=== PATIENT | female | born 1965 | race Caucasian/White ===

== ENCOUNTER 2021-05-06 10:45 | Outpatient (CLI) | payer OTHER, SELFPAY ==
--- NOTE | ~2021-05-06 | US_ITS ---
EXAMINATION: US pelvic complete w TV DATE: 05/06/2021 11:10 INDICATION: Abnormal uterine bleeding. Possible menopause. Comparison:No prior studies for comparison. TECHNIQUE: Multiple transabdominal and endovaginal sonographic images of the pelvis performed. FINDINGS: The uterus measures 10.1 x 4.9 x 6.3 cm. The endometrial complex measures 1.7 cm. Endometri um is heterogeneous. The ovaries are not visualized, possibly atrophic. There is no free fluid in the pelvis. There are no abnormal masses seen on either side. IMPRESSION: 1. Thickened endomtrial complex. The differential diagnosis includes endometrial hyperplasia, polyp a nd carcinoma. Biopsy is recommended. Reviewed, dictated and finalized at location A. IMPRESSION: 1. Thickened endomtrial complex. The differential diagnosis includes endometria l hyperplasia, polyp and carcinoma. Biopsy is recommended.
== END 2021-05-06 10:46 ==
PROVIDERS: PCP Physician Assistant; Visit Provider Obstetrics & Gynecology
DX: N93.9 Abnormal uterine and vaginal bleeding, unspecified (principal)
CPT/HCPCS: 76830; 76856

== ENCOUNTER → 2021-11-11 16:43 | Outpatient (CLI) | payer OTHER, SELFPAY ==
--- NOTE | ~2021-11-11 | XR_ITS ---
EXAMINATION: XR skull min 4V DATE: 11/11/2021 17:31 INDICATION: Asymmetrical skull. Right frontal lump. TECHNIQUE: 4 views of the skull were obtained. COMPARISON: None. FINDINGS: Bone alignment is normal. No abnormal mass. No fracture. IMPRESSION: 1. Normal skull. Reviewed, dictated and finalized at location B. IMPRESSION: 1. Normal skull.
== END ==
PROVIDERS: PCP Physician Assistant; Visit Provider Physician Assistant
DX: Q75.9 Congenital malformation of skull and face bones, unspecified (principal)
CPT/HCPCS: 70260

== ENCOUNTER 2022-03-31 14:16 | Outpatient (CLI) | payer OTHER, SELFPAY ==
--- NOTE | ~2022-03-31 | CT_ITS ---
EXAMINATION: CT abdomen pelvis wo/w con DATE: 03/31/2022 15:11 INDICATION: Microscopic hematuria. Right flank pain. TECHNIQUE: Computed tomography (CT) of the abdomen and pelvis was performed without and with intraven ous contrast using a total of 130 mL Omnipaque-350 intravenous contrast with a double-bolus technique for simultaneous opacification of the renal parenchyma and renal collecting system. Automated exposu re control and iterative reconstruction technique were employed. The dose-length product was 2218.26 mGy-cm. COMPARISON: CT abdomen and pelvis 04/24/2019 FINDINGS: The visualized portions of the lung bases are clear without pneumonia or pleural effusion. The heart size is normal. No pericardial effusion. The liver and spleen are normal. There are changes of cholec ystectomy. The pancreas and adrenal glands are normal. There is cortical thinning of right kidney. Th ere are cysts in left kidney measuring up to 7 mm. There are phleboliths in right ovarian vein. There is no urolithiasis. The bladder is not well distended. There are no dilated loops of bowel. The appe ndix is normal. There is an umbilical hernia containing fat. There are no pathologically enlarged lym ph nodes. There is no free intraperitoneal fluid. There is moderate lumbar spondylosis and severe tho racic spondylosis. There is mild chronic anterior wedging of multiple thoracic vertebral bodies. IMPRESSION: 1. No etiology for hematuria. 2. Umbilical hernia containing fat. Reviewed, dictated and finalized at location A.
== END 2022-03-31 14:17 ==
LOC: MICIMG 14:19
PROVIDERS: PCP Physician Assistant; Visit Provider Nurse Practitioner
DX: R31.29 Other microscopic hematuria (principal); K42.9 Umbilical hernia without obstruction or gangrene; M47.815 Spondylosis without myelopathy or radiculopathy, thoracolumbar region; M48.54XA Collapsed vertebra, not elsewhere classified, thoracic region, initial encounter for fracture
CPT/HCPCS: 74178; Q9967

== ENCOUNTER → 2022-07-20 08:28 | Outpatient (CLI) | payer OTHER, SELFPAY ==
--- NOTE | ~2022-07-20 | MR_ITS ---
MRI of the lumbar spine Clinical History: Spondylosis Technique: Axial T2-weighted images, and sagittal T1-weighted, T2-weighted, and T2 fat-sat images wer e acquired. Findings: There is no fracture or subluxation of the lumbar spine. Vertebral bodies maintain normal h eight and alignment. No bone marrow signal abnormality identified. At L1-L2, there is no disc bulge or herniation. No spinal canal stenosis or neural foraminal narrowin g. There is minimal facet arthropathy. At L2-L3, there is minimal right foraminal disc bulge. There is facet arthropathy. There is minimal r ight neural foraminal narrowing. Left neural foramen preserved. No spinal canal stenosis. At L3-L4, there is mild disc bulge with facet arthropathy. No spinal canal stenosis or definite neura l foraminal narrowing. At L4-L5, there is minimal disc bulge with facet arthropathy. There is mild resultant thecal sac comp ression. Bilateral neural foramina are preserved. At L5-S1, there is no disc bulge or herniation. There is moderate facet arthropathy. There is no spin al canal stenosis or neural foraminal narrowing. Paravertebral soft tissues are unremarkable. Impression: Mild degenerative spondylosis overall. There is mild thecal sac compression and L4-L5. There is minim al right neural foraminal narrowing at L2-L3. Reviewed, dictated and finalized at [facility]. [facility] Impression: Mild degenerative spondylosis overall. There is mild thecal sac compression and L4-L5. There is minimal right neural foraminal narrowing at L2-L3.
--- NOTE | ~2022-07-20 | MR_ITS ---
MRI of the thoracic spine Clinical History: Spondylosis Technique: Axial T2-weighted images, and sagittal T1-weighted, T2-weighted, and STIR images were acqu ired. Findings: There is no fracture or subluxation of the thoracic spine. Vertebral bodies maintain normal height and alignment. Probable intraosseous hemangioma at the T6 vertebral body. No other bone marro w signal abnormality evident. Probable central disc protrusions versus small extrusions noted at T5-T6 and T6-T7, which result in m ild ventral cord compression. There is additional mild disc protrusion in the right paracentral regio n at T9-T10, which minimally flattens the ventral cord on the right side. No other significant disc bulge or herniation seen. No other areas of spinal canal stenosis or cord c ompression. No epidural mass seen. No abnormal signal seen in the spinal cord. Impression: Central disc protrusions versus small extrusions at T5-T6 and T6-T7, which result in mild ventral cor d compression. Right paracentral disc protrusion at T9-T10, which minimally flattens the ventral cord on the right s bety. Reviewed, dictated and finalized at location M. [employer] Impression: Central disc protrusions versus small extrusions at T5-T6 and T6-T7, which resu lt in mild ventral cord compression. Right paracentral disc protrusion at T9-T10, which minimally flattens the ventr al cord on the right side.
== END ==
PROVIDERS: PCP Physician Assistant; Visit Provider Physician Assistant
DX: M47.816 Spondylosis without myelopathy or radiculopathy, lumbar region (principal); M51.24 Other intervertebral disc displacement, thoracic region
CPT/HCPCS: 72146; 72148

== ENCOUNTER 2023-01-03 15:41 | Outpatient (CLI) | payer OTHER, SELFPAY ==
--- NOTE | ~2023-01-03 | XR_ITS ---
EXAM: XR knee RT 3V, XR knee LT 3V DATE: 01/03/2023 16:18 HISTORY: Pain in left and right knee . COMPARISON: None available. FINDINGS: Normal mineralization. No fracture or dislocation. No lytic or blastic lesion. Mild bilate ral medial joint space narrowing. Mild bilateral tricompartmental osteophytosis, most evident in the patellofemoral compartments. No erosion or periosteal change. Soft tissues within normal limits. Smal l bilateral knee joint effusions. IMPRESSION: Mild bilateral knee osteoarthritis. Reviewed, dictated and finalized at location K. IMPRESSION: Mild bilateral knee osteoarthritis.
== END 2023-01-03 15:42 ==
LOC: MICIMG 15:44
PROVIDERS: PCP Physician Assistant; Visit Provider Physician Assistant
DX: M17.0 Bilateral primary osteoarthritis of knee (principal)
CPT/HCPCS: 73562